=== PATIENT | male | born 1950 | race Caucasian/White ===

== ENCOUNTER → 2018-03-25 | Outpatient (CLI) | payer OTHER ==
[~2018-03-25] MED LIST: ASPIR 8181 M1 PO; LOPRESSOR25 MG PO; MULTI VITAMIN1 EACH PO; OSTEO BI-FLEX1 EAC2 PO; PRAVACHOL40 MG PO; RANITIDINE HCL300 MG PO
[2018-03-25 10:59] LABS: COMMENTS - BLOOD GASES +C; FI02 21 %; SITE LR +A; TOTAL RESP RATE 20 resp/min
[2018-03-25 11:00] LABS: BASE EXCESS 1.6 mEq/L (-3 to +3); BICARBONATE 25.9 mEq/L (22-26); CARBOXY HGB 1.4 % (0-5); METHEMOGLOBIN 0.9 % (0-1.5); PCO2 39 mm Hg (35-45); PO2 86 mm Hg (80-100); pH 7.43 (7.35-7.45)
== END | disposition home or self-care (01) ==
LOC: RES 10:12
PROVIDERS: Internal Medicine Hematology & Oncology
DX: D75.1 Secondary polycythemia (principal)
CPT/HCPCS: 36600; 82803